=== PATIENT | male | born 1965 ===

== ENCOUNTER → 2018-11-16 | Outpatient (CLI) | payer OTHER | END | disposition home or self-care (01) | LOC: PLD 07:15 → LAB SHORT 07:15 | DX: D22.5 Melanocytic nevi of trunk (principal) | CPT/HCPCS: 88305 ==

== ENCOUNTER → 2018-12-03 | Outpatient (CLI) | payer OTHER | END | disposition home or self-care (01) | LOC: LAB SHORT 14:47 → PLD 14:47 | DX: D22.5 Melanocytic nevi of trunk (principal) | CPT/HCPCS: 88305 ==